=== PATIENT | female | born 1980 | race Caucasian/White ===

== ENCOUNTER 2018-07-25 13:28 | Emergency (ER) | payer SELFPAY ==
[~2018-07-25] VITALS: Ht 165.1 cm; Wt 112.7 kg
[2018-07-25 13:35] VITALS: Ht 165.1 cm; Wt 112.7 kg
[2018-07-25] MEDS ORDERED: GLUCOPHAGE1000 MG PO (13:36)
[2018-07-25] MEDS ORDERED: PRENAVITE1 TAB PO (13:37)
[2018-07-25] MEDS ORDERED: CELEXA40 MG PO (13:37)
[2018-07-25] MEDS ORDERED: TRICOR145 MG PO (13:37)
[2018-07-25] MEDS ORDERED: CALCIUM 500 +1 EAC3 PO (13:37)
[2018-07-25 16:50] VITALS: BP 139/90
== END 2018-07-25 16:35 | disposition home or self-care (01) ==
LOC: D.ER 13:28
DX: T18.198A Other foreign object in esophagus causing other injury, initial encounter (principal); X58.XXXA Exposure to other specified factors, initial encounter; Y93.89 Activity, other specified; Y92.019 Unspecified place in single-family (private) house as the place of occurrence of the external cause; R13.10 Dysphagia, unspecified